=== PATIENT | male | born 1965 | race Caucasian/White ===

== ENCOUNTER 2025-06-08 14:10 | Inpatient (IN) | payer MEDICARE ==
[~2025-06-08] VITALS: Ht 175.3 cm; Wt 90.2 kg
[2025-06-08] VITALS (11 sets, daily range): BP systolic 109–134; BP diastolic 62–75
[2025-06-08 15:05] LABS: BASOPHILS ABSOLUTE AUTO 0.04 K/mm3 (0.00-0.23); BASOPHILS PERCENT AUTO 1 % (0-2); EOSINOPHILS ABSOLUTE AUTO 0.33 K/mm3 (0.00-0.68); EOSINOPHILS PERCENT AUTO 7 % (0-6); Hematocrit 26.1 % (37.0-53.0); Hemoglobin 7.3 g/dL (13.5-17.5); IMMATURE GRAN ABSOLUTE AUTO 0.02 K/mm3 (0.00-0.10); IMMATURE GRAN PERCENT AUTO 0 % (0-1); LYMPHOCYTES ABSOLUTE AUTO 0.71 K/mm3 (0.84-5.20); LYMPHOCYTES PERCENT AUTO 14 % (21-46); MONOCYTES ABSOLUTE AUTO 0.51 K/mm3 (0.16-1.47); MONOCYTES PERCENT AUTO 10 % (4-13); Mean Corpuscular HGB Conc 28.0 g/dL (31.5-36.5); Mean Corpuscular Volume 78 fL (80-100); NEUTROPHILS ABSOLUTE AUTO 3.34 K/mm3 (1.96-9.15); NEUTROPHILS PERCENT AUTO 68 % (41-73); NRBC ABSOLUTE 0.00 K/mm3 (0.00-0.02); NRBC Auto 0.0 /100 WBC (0.0-0.2); Platelet Count 77 K/mm3 (150-400); RDW Coefficient Variation 25.2 % (11.7-14.2); RDW Standard Deviation 71.9 fL (35.1-46.3)
[2025-06-08 15:15] LABS: Alanine Aminotransfer (ALT/SGP 34.0 U/L (12-78); Albumin, Blood 2.9 g/dL (3.4-5.0); Albumin/Globulin Ratio 0.7 (0.8-1.8); Anion Gap 11.0 mmol/L (3-11); Aspartate Aminotrans (AST/SGOT 42.0 U/L (12-37); Bilirubin, Total 0.6 mg/dL (0.1-1.0); Blood Urea Nitrogen 23.0 mg/dL (8-24); CO2, Blood 26.0 mmol/L (21-32); Calcium, Blood 8.7 mg/dL (8.5-10.1); Chloride, Blood 109.0 mmol/L (98-108); Creatinine, Blood 1.09 mg/dL (0.60-1.20); Globulin, Blood 4.0 g/dL (2.2-4.0); Glucose, Blood 114.0 mg/dL (70-99); Potassium, Blood 4.4 mmol/L (3.5-5.5); Sodium, Blood 142.0 mmol/L (136-145); Total Protein, Blood 6.9 g/dL (6.4-8.2)
[2025-06-08] MEDS ORDERED: FINA5 PO ×2 (16:52→22:47)
[2025-06-08] MEDS ORDERED: PREGABALIN75 MG PO (16:53)
[2025-06-08] MEDS ORDERED: FUROSEMIDE20 MG PO (16:53)
[2025-06-08] MEDS ORDERED: CONSTULOSE10 GM/15 M PO (16:53)
[2025-06-08] MEDS ORDERED: SPIRONOLACTONE50 MG PO (16:53)
[2025-06-08 20:25] LABS: Source, Urine Clean Catch
[2025-06-08 20:30] LABS: Bilirubin, Urine Neg (Neg); Glucose Qualitative, Urine Neg (Neg); Ketones, Urine Neg (Neg); Leukocyte Esterase, Urine Neg (Neg); Protein, Urine Neg (Neg); Specific Gravity, Urine 1.010 (1.003-1.022); Urobilinogen, Urine NORM (Normal)
[2025-06-08 20:45] LABS: Color, Urine Pale Yellow (P-Yellow)
[2025-06-08] MEDS ORDERED: FLU VACC TS2025-26(6MOS UP)/PF 45 MCG/0.5 ML SYRINGE IM SCH (21:35)
[2025-06-08] MEDS ORDERED: Ondansetron HCl 2 MG / ML 2ML Vial IV PRN (21:35)
[2025-06-08 22:29] LABS: BASOPHILS ABSOLUTE AUTO 0.03 K/mm3 (0.00-0.23); BASOPHILS PERCENT AUTO 1 % (0-2); EOSINOPHILS ABSOLUTE AUTO 0.30 K/mm3 (0.00-0.68); EOSINOPHILS PERCENT AUTO 7 % (0-6); Hematocrit 26.1 % (37.0-53.0); Hemoglobin 7.5 g/dL (13.5-17.5); IMMATURE GRAN ABSOLUTE AUTO 0.01 K/mm3 (0.00-0.10); IMMATURE GRAN PERCENT AUTO 0 % (0-1); LYMPHOCYTES ABSOLUTE AUTO 0.87 K/mm3 (0.84-5.20); LYMPHOCYTES PERCENT AUTO 20 % (21-46); MONOCYTES ABSOLUTE AUTO 0.43 K/mm3 (0.16-1.47); MONOCYTES PERCENT AUTO 10 % (4-13); Mean Corpuscular HGB Conc 28.7 g/dL (31.5-36.5); Mean Corpuscular Volume 77 fL (80-100); NEUTROPHILS ABSOLUTE AUTO 2.76 K/mm3 (1.96-9.15); NEUTROPHILS PERCENT AUTO 63 % (41-73); NRBC ABSOLUTE 0.00 K/mm3 (0.00-0.02); NRBC Auto 0.0 /100 WBC (0.0-0.2); Platelet Count 81 K/mm3 (150-400); RDW Coefficient Variation 25.3 % (11.7-14.2); RDW Standard Deviation 71.8 fL (35.1-46.3)
[2025-06-08] MEDS ORDERED: METFORMIN HCL500 M3 PO (22:45)
[2025-06-08 22:47] LABS: Prothrombin Time Results 13.0 Sec (9.7-11.5)
[2025-06-08] MEDS ORDERED: Lamictal150 MG PO (22:47)
[2025-06-08] MEDS ORDERED: ATOR40TA PO (22:48)
[2025-06-08] MEDS ORDERED: TAMSULOSIN HCL0.4 M1 PO (22:48)
[2025-06-08] MEDS ORDERED: ZOLOFT50 MG PO (22:49)
[2025-06-08] MEDS ORDERED: LACOSAMIDE100 M1 PO (22:50)
[2025-06-08] MEDS ORDERED: PANTOPRAZOLE SO40 M2 PO (22:50)
[2025-06-08] MEDS ORDERED: CARVEDILOL3.125 MG PO (22:51)
[2025-06-08] MEDS ORDERED: MELATONIN5 M1 PO (22:53)
[2025-06-08 23:14] LABS: U Amphetamine Screen Not Detected; U Barbituate Screen Not Detected; U Benzodiazapine Screen Not Detected; U Buprenorphine Screen Not Detected; U Cannabinoids Screen DETECTED; U Cocaine Screen Not Detected; U Methadone Screen Not Detected; U Methamphetamine Screen Not Detected; U Opiates Screen Not Detected; U Oxycodone Screen DETECTED; U Phencyclidine Screen Not Detected
[2025-06-08 23:19] LABS: Magnesium, Blood 2.0 mg/dL (1.6-2.4); Total Iron Binding Capacity 359.0 ug/dL (250-450)
[2025-06-08] MEDS ORDERED: OXYC10TA19 PO (23:20)
[2025-06-09] VITALS (9 sets, daily range): BP systolic 100–120; BP diastolic 53–78
--- NOTE | 2025-06-09 00:34 | NUR ---
ASSUMPTION OF CARE PT ARRIVED TO UNIT APPROX 2130. HR IS LOW 80'S AND NSR ON MONITOR, BP STABLE WITH MAP >65 AND SPO2 >94% ON RA. PT ARRIVES ALERT, ORIENTED TO SELF, PERSON AND SITUATION BUT NOT PLACE/TIME. PATENT 20G PIV IN RFA. BED ALARM IS ON AND CALL LIGHT WITHIN REACH.
[2025-06-09 03:45] LABS: BASOPHILS ABSOLUTE AUTO 0.03 K/mm3 (0.00-0.23); BASOPHILS PERCENT AUTO 1 % (0-2); EOSINOPHILS ABSOLUTE AUTO 0.30 K/mm3 (0.00-0.68); EOSINOPHILS PERCENT AUTO 7 % (0-6); Hematocrit 24.4 % (37.0-53.0); Hemoglobin 7.1 g/dL (13.5-17.5); IMMATURE GRAN ABSOLUTE AUTO 0.01 K/mm3 (0.00-0.10); IMMATURE GRAN PERCENT AUTO 0 % (0-1); LYMPHOCYTES ABSOLUTE AUTO 0.86 K/mm3 (0.84-5.20); LYMPHOCYTES PERCENT AUTO 21 % (21-46); MONOCYTES ABSOLUTE AUTO 0.38 K/mm3 (0.16-1.47); MONOCYTES PERCENT AUTO 9 % (4-13); Mean Corpuscular HGB Conc 29.1 g/dL (31.5-36.5); Mean Corpuscular Volume 78 fL (80-100); NEUTROPHILS ABSOLUTE AUTO 2.58 K/mm3 (1.96-9.15); NEUTROPHILS PERCENT AUTO 62 % (41-73); NRBC ABSOLUTE 0.00 K/mm3 (0.00-0.02); NRBC Auto 0.0 /100 WBC (0.0-0.2); Platelet Count 79 K/mm3 (150-400); RDW Coefficient Variation 25.4 % (11.7-14.2); RDW Standard Deviation 70.9 fL (35.1-46.3)
[2025-06-09 04:00] LABS: Prothrombin Time Results 12.7 Sec (9.7-11.5)
[2025-06-09 04:17] LABS: Alanine Aminotransfer (ALT/SGP 30.0 U/L (12-78); Albumin, Blood 2.8 g/dL (3.4-5.0); Albumin/Globulin Ratio 0.8 (0.8-1.8); Anion Gap 10.0 mmol/L (3-11); Aspartate Aminotrans (AST/SGOT 29.0 U/L (12-37); Bilirubin, Total 0.6 mg/dL (0.1-1.0); Blood Urea Nitrogen 21.0 mg/dL (8-24); CO2, Blood 29.0 mmol/L (21-32); Calcium, Blood 8.6 mg/dL (8.5-10.1); Chloride, Blood 108.0 mmol/L (98-108); Creatinine, Blood 1.1 mg/dL (0.60-1.20); Globulin, Blood 3.7 g/dL (2.2-4.0); Glucose, Blood 109.0 mg/dL (70-99); Potassium, Blood 3.6 mmol/L (3.5-5.5); Sodium, Blood 143.0 mmol/L (136-145); Total Protein, Blood 6.5 g/dL (6.4-8.2)
--- NOTE | 2025-06-09 05:20 | NUR ---
SHIFT SUMMARY PT REMAINS ORIENTED TO SELF, PERSON & SITUATION. HR IS SINUS IN THE 70S-80S ON MONITOR, BP STABLE WITH SYSTOLIC 110S-120S WITH MAP >65. SP02 INTERMITTENLY DIPS TO HIGH 88/89 WHILE SLEEPING AND RETURNS TO >92% ON RA. USES URINAL WITH MINIMAL ASSISTANCE, NO BM THIS SHIFT AFTER LACTULOSE IN THE ED PRIOR TO ADMISSION. NO UNMET NEEDS EXPRESSED AT THIS TIME, CALL LIGHT WITHIN REACH AND BED ALARM ACTIVATED.
[2025-06-09] MEDS ORDERED: Insulin Human Lispro 100 Units/ML 3ML Syringe SC SCH (07:30)
[2025-06-09] MEDS ORDERED: Iron Dextran 50 MG / ML 2ML Vial IV ONE (08:10)
[2025-06-09] MEDS ORDERED: Iron Dextran 975 MG in NS 250 ML IV ONE (09:30)
--- NOTE | 2025-06-09 10:13 | NUR ---
"Spiritual Care | Pt. request Pt. is awake in bed when he welcomes my visit. Pt. is pleasant, but quickly verbalizes that he is slow to mentally process and can be slow to respond. Faciltated a short life revie and listened with patient empathy and a calming presence. Pt. displayed evidence of some ocassional confusion, but overall engaged thoughtfully. Pt. verbalized his hope that his mother could visit as she is a primary support for him. Pt. verbalized in detail that she would be dependant upon someone drving her to this hospital from [place]. Pt. welcomed prayer. Prayed for the Pt. Pt. verbalized gratitude for the spiritual care visit."
--- NOTE | 2025-06-09 17:53 | NUR ---
Summary. Pt alert and oriented x2 throughout shift, easily confused during conversation. Up with PT and to bedside commode/recliner with walker and gait belt. Pt is weak but able to ambulate safely. No acute events this shift, VS stable. See chart for further details.
[2025-06-09] MEDS ORDERED: Arginine/Glutamine/Calcium Hmb 1 Packet PO SCH (21:00)
[2025-06-10] VITALS (8 sets, daily range): BP systolic 99–135; BP diastolic 56–78
[2025-06-10 04:37] LABS: Hematocrit 23.7 % (37.0-53.0); Hemoglobin 6.8 g/dL (13.5-17.5); Mean Corpuscular HGB Conc 28.7 g/dL (31.5-36.5); Mean Corpuscular Volume 78 fL (80-100); NRBC ABSOLUTE 0.00 K/mm3 (0.00-0.02); NRBC Auto 0.0 /100 WBC (0.0-0.2); Platelet Count 82 K/mm3 (150-400); RDW Coefficient Variation 25.4 % (11.7-14.2); RDW Standard Deviation 71.0 fL (35.1-46.3)
[2025-06-10 05:02] LABS: Anion Gap 8.0 mmol/L (3-11); Blood Urea Nitrogen 18.0 mg/dL (8-24); CO2, Blood 30.0 mmol/L (21-32); Calcium, Blood 8.3 mg/dL (8.5-10.1); Chloride, Blood 109.0 mmol/L (98-108); Creatinine, Blood 1.09 mg/dL (0.60-1.20); Glucose, Blood 106.0 mg/dL (70-99); Potassium, Blood 3.6 mmol/L (3.5-5.5); Sodium, Blood 143.0 mmol/L (136-145)
--- NOTE | 2025-06-10 07:16 | NUR ---
SHIFT SUMMARY PT HAS TOLERATED SHIFT OVERNIGHT WELL WITH NO SIGNIFICANT EVENTS OR CHANGES IN STATUS. PT IS ALERT AND ORIENTED AND ABLE TO MOVE ALL EXTREMETIES. PT HAS BEEN ABLE TO MOVE SELF IN BED AND HAS BEEN CALL LIGHT APPROPRIATE THROUGH SHIFT. PT WAS FOUND TO HAVE A LOW HEMOGLOBIN LEVEL THIS MORNING AND HAS BEEN STARTED ON BLOOD TRANSFUSION PER PHYSICIAN ORDERS. PT HAS BEEN TOLERATING TRANSFUSION WELL. PT WAS ABLE TO HAVE ONE BOWEL MOVEMENT OVERNIGHT THAT STARTED SOLID AND ENDED SOMEWHAT LOOSE. REPORT PASSED TO DAY SHIFT TEAM.
--- NOTE | 2025-06-10 16:31 | NUR ---
SHIFT SUMMARY: PT A/O X2-3, FORGETS LIMITATIONS, ABLE TO MAKE NEEDS KNOWN. PT HAS DIFFICULTY WITH TRACKING CONVERSATIONS. PT MOM CURRENTLY VISITING AT BEDSIDE. STRENGTH EQUAL BILATERALLY, EXPIERENCES WEAKNESS WITH AMBULATION. PT ON ROOM AIR, SATS >90%. DENIES SOB. PT IS NSR 60s, DENIES CHEST PAIN/PRESSURE. AFEBRILE, OTHER VSS. PT SBA TO VOID USING BSC AND URINAL. PT ABDOMEN MODERATELY DISTENDED AND FIRM. PT UNABLE TO HAVE A BM THIS SHIFT. PT UP TO CHAIR TODAY AND TOLERATING WELL, CALL WITHIN REACH.
[2025-06-11 04:50] LABS: Hematocrit 26.5 % (37.0-53.0); Hemoglobin 7.7 g/dL (13.5-17.5); Mean Corpuscular HGB Conc 29.1 g/dL (31.5-36.5); Mean Corpuscular Volume 78 fL (80-100); NRBC ABSOLUTE 0.00 K/mm3 (0.00-0.02); NRBC Auto 0.0 /100 WBC (0.0-0.2); Platelet Count 84 K/mm3 (150-400); RDW Coefficient Variation 25.2 % (11.7-14.2); RDW Standard Deviation 70.9 fL (35.1-46.3)
[2025-06-11 07:19] VITALS: BP 129/79
[2025-06-11 10:59] VITALS: BP 101/60
--- NOTE | 2025-06-11 16:03 | NUR ---
4069 PALLIATIVE CARE VISIT: CONSULT RECEIVED FOR END STAGE DISEASE, SYMPTOM MANAGEMENT. REVIEWED MEDICAL RECORD AND SPOKE TO PRIMARY RN PRIOR TO VISIT. PT WAS AWAKE AND INTERACTIVE, ALSO EATING LUNCH AT TIME OF VISIT WHICH HE ATE 100% OF MAIN COURSE. PT STATES HE HAS GOOD APPETITE. MOTHER DAVI IS PRESENT. PER DAVI SHE WANTS HER DAUGHTER TO ALSO BE PRESENT FOR OUR CONVERSATION. ADVISED TO LET ME KNOW WHEN FAN IS HERE AND TO LET PRIMARY RN KNOW AND I WILL COME TO SEE PT AGAIN. PROVIDED ADVANCE DIRECTIVE BOOKLET FOR REVIEW OF MATERIAL WHILE WAITING FOR MEETING WITH FAN.
[2025-06-11 16:12] VITALS: BP 123/59
--- NOTE | 2025-06-11 16:26 | NUR ---
SHIFT SUMMARY: PT ALERT AND ORIENTED X3, ABLE TO FOLLOW COMMANDS AND MAKE NEEDS KNOWN. FORGETFUL AT TIMES. BED ALARM ON FOR SAFETY. STRENGTH EQUAL BILATERALLY. BP STABLE. HR SR 70'S. DENIES CP/PRESSURE. PULSES STRONG AND EQUAL THROUGHOUT. AFEBRILE. SPO2 >96% ON ROOM AIR. LUNG SOUNDS CLEAR THROUGHOUT. ABD MILDLY DISTENDED, BOWEL SOUNDS +. PT ONE PERSON ASSIST WITH [facility]WW TO AND FROM [facility]. NO BM THIS SHIFT. PHYSICAL THERAPY IN THIS AFTERNOON, PT TOLERATED WELL. MOTHER AT BEDSIDE MAJORITY OF THE DAY, UPDATED ON PT PLAN OF CARE. POWERGLIDE IN ANDREW, DRAWS AND FLUSHES. DENIES PAIN THROUGHOUT. BED IN LOW, CALL LIGHT IN REACH, WILL REPORT TO ONCOMING RN.
[2025-06-11 20:33] VITALS: BP 108/63
[2025-06-12 07:39] LABS: Hematocrit 27.4 % (37.0-53.0); Hemoglobin 8.0 g/dL (13.5-17.5); Mean Corpuscular HGB Conc 29.2 g/dL (31.5-36.5); Mean Corpuscular Volume 79 fL (80-100); NRBC ABSOLUTE 0.00 K/mm3 (0.00-0.02); NRBC Auto 0.0 /100 WBC (0.0-0.2); Platelet Count 89 K/mm3 (150-400); RDW Coefficient Variation 26.0 % (11.7-14.2); RDW Standard Deviation 73.0 fL (35.1-46.3)
[2025-06-12 07:45] VITALS: BP 109/76
[2025-06-12 07:50] LABS: Anion Gap 6.0 mmol/L (3-11); Blood Urea Nitrogen 17.0 mg/dL (8-24); CO2, Blood 32.0 mmol/L (21-32); Calcium, Blood 8.0 mg/dL (8.5-10.1); Chloride, Blood 108.0 mmol/L (98-108); Creatinine, Blood 1.12 mg/dL (0.60-1.20); Glucose, Blood 104.0 mg/dL (70-99); Potassium, Blood 3.9 mmol/L (3.5-5.5); Sodium, Blood 142.0 mmol/L (136-145)
[2025-06-12 09:17] VITALS: BP 96/50
--- NOTE | 2025-06-12 09:20 | NUR ---
TRANSFER: PT TRANSFERED F/ICU, ARRIVES TO UNIT ALERT, TRANSFERS SELF F/ W/C TO BED INDEPENDENTLY. PT IS ORIENTED TO SELF, LOCATION, SITUATION. PT IS SLOW TO ANSWER QUESTIONS, ABLE TO MAKE NEEDS KNOWN, COOPERATIVE W/CARE. PT DENIES SOB, O2 SATS >93% ON RA, LS CLEAR. PT DENIES CP, SR 84 ON MONITOR. PULSES STRONG AND EQUAL T/OUT. ABDOMEN MOD DISTENDED, NONTENDER TO PALP, BS + TO AUSC. PER REPORT, PT IS 1 ASSIST W/FWW TO/FROM BSC. PER REPOT, PT W/ONE SOFT BM ON NOC SHIFT. ULCERS TO GREAT TOES ON BILATERAL FEET, DRESSINGS TO BE CHANGED TODAY. PG TO ANDREW, FLUSHES WELL, DOES NOT DRAW. PT HAS BEEN ORIENTED TO ROOM, CALL LIGHT IN REACH.
--- NOTE | 2025-06-12 09:55 | NUR ---
TRANSFER PT TRANSFERED TO U 6 VIA . REPORT GIVEN TO NAZ TURNER. ALL BELONGINGS TRANSFERRED WITH PT.
[2025-06-12 11:51] VITALS: BP 115/69
[2025-06-12 17:00] VITALS: BP 112/63
--- NOTE | 2025-06-12 18:22 | NUR ---
SHIFT SUMMARY: PT CONTINUES ORIENTED x3, SLOW MOVEMENTS AND RESPONSE, ABLE TO COMMUNICATE NEEDS. FAMILY AT BEDSIDE MAJORITY OF DAY, PROVIDER TO BEDSIDE TO ADDRESS CONCERNS AND PALLIATIVE CARE IN ROOM FOR CARE PLANNING. PT DENIES SOB, O2 SATS >93% RA. PT DENIES CP, SR ON MONITOR. PT OOB TO RESTROOM W/OUT CALLING FOR ASSISTANCE x1 TODAY, ASSISTED BACK TO BED, EDUCATED RE: IMPORTANCE OF CALLING, PT V/U, BED ALARM ON. BMx1 THIS SHIFT. PT AMBULATED INTO HALLWAY W/ 1P ASSIST, GAIT BELT, FWW AND TOLERATED IT WELL. WOUNDS ON TOES CLEANED AND REDRESSED THIS SHIFT. PT RESTING IN BED W/CALL LIGHT IN REACH.
--- NOTE | 2025-06-12 18:41 | NUR ---
PALLIATIVE CARE CONSULT: MET WITH FAMILY AND PT TODAY AT 1520 TO COMPLETE POLST/AD. FAMILY PRESENT-MOM DAVI AND SISTER SUSANNAH. PT LEFT TO [place] AND TOLD THEM JAYNE CANNOT BE CAREGIVER TO [place] ANY LONGER SO SPOUSE IS CURRENTLY UNINVOLVED. [facility] HAS HX OF TBI SO FAMILY THERE TO ASSIST WITH EXPLAINING AND MAKING CHOICES. PT IS ALERT AND ORIENTED TO SELF, FAMILY, PLACE AND SITUATION. HE IS ABLE TO VERBALIZE AND COMPREHEND HIS CHOICES HE DOES NEED TIME TO PROCESS AND AT TIMES MULTIPLE EXPLAINATIONS. AD AND POLST COMPLETED. PT DOES NEED IT NOTARIZED. ADVISED TO NOT SIGN UNTIL NOTARY HERE AND WILL NEED ID. EDUCATED ON POLST AND EXPLAINED RISKS VS BENEFITS OF CPR. PT STATED HE DOES NOT WANT CPR DUE TO HIS ESOPHAGEAL VARICES. HE WOULD BE OKAY WITH TEMPORARY INTUBATION, SHOCK AND MEDICATIONS IF NEEDED. POLST COMPLETED AND SIGNED BY PT. NOTIFIED DR. GIBBS OF PT CHOICES. ORDER RECIEVED TO PLACE LIMITED CODE. DR. GIBBS TO SIGN TOMORROW. AD TO BE NOTARIZED TOMORROW.
[2025-06-12] MEDS ORDERED: Insulin Glargine 100 Unit/ML 3 ML SYR SC SCH (21:00)
[2025-06-12] MEDS ORDERED: Insulin Glargine-Yfgn 100 Unit/mL 3 ML SYR SC SCH (21:00)
[2025-06-12 21:09] VITALS: BP 109/56
[2025-06-13 03:13] VITALS: BP 115/72
[2025-06-13 04:07] LABS: Anion Gap 6.0 mmol/L (3-11); Blood Urea Nitrogen 19.0 mg/dL (8-24); CO2, Blood 32.0 mmol/L (21-32); Calcium, Blood 8.2 mg/dL (8.5-10.1); Chloride, Blood 109.0 mmol/L (98-108); Creatinine, Blood 1.16 mg/dL (0.60-1.20); Glucose, Blood 124.0 mg/dL (70-99); Potassium, Blood 4.2 mmol/L (3.5-5.5); Sodium, Blood 143.0 mmol/L (136-145)
--- NOTE | 2025-06-13 05:18 | NUR ---
SHIFT SUMMARY: NO SIGNIFICANT CHANGES DURING THE SHIFT. PATIENT IS A&OX3, FORGETFULL OF PLACE INTERMITTENTLY BUT IS EASILY REORIENTED. BED ALARM ON A PRECAUTION. VITALS ARE STABLE AND IS ON ROOM AIR WITH >90% SPO2. PATIENT DENIES PAIN THROUGHOUT SHIFT. PATIENT IS ABLE TO MAKE HIS NEEDS KNOWN. HE IS VOIDING AND IS A 1P ASSIST WITH FWW AND GAIT BELT WHEN AMBULATING TO BATHROOM. HE IS CURRENTLY LAYING IN BED WITH CALL LIGHT IN REACH. IT IS NOTED THAT PATIENT HAS NOT HAD A BM THROUGHOUT SHIFT AND HAS BEEN GIVEN HIS PO LACTULOSE PER NOV.
[2025-06-13 08:13] VITALS: BP 132/72
[2025-06-13 08:14] LABS: BASOPHILS ABSOLUTE AUTO 0.05 K/mm3 (0.00-0.23); BASOPHILS PERCENT AUTO 1 % (0-2); EOSINOPHILS ABSOLUTE AUTO 0.29 K/mm3 (0.00-0.68); EOSINOPHILS PERCENT AUTO 6 % (0-6); Hematocrit 30.6 % (37.0-53.0); Hemoglobin 8.8 g/dL (13.5-17.5); IMMATURE GRAN ABSOLUTE AUTO 0.01 K/mm3 (0.00-0.10); IMMATURE GRAN PERCENT AUTO 0 % (0-1); LYMPHOCYTES ABSOLUTE AUTO 0.96 K/mm3 (0.84-5.20); LYMPHOCYTES PERCENT AUTO 19 % (21-46); MONOCYTES ABSOLUTE AUTO 0.49 K/mm3 (0.16-1.47); MONOCYTES PERCENT AUTO 10 % (4-13); Mean Corpuscular HGB Conc 28.8 g/dL (31.5-36.5); Mean Corpuscular Volume 81 fL (80-100); NEUTROPHILS ABSOLUTE AUTO 3.33 K/mm3 (1.96-9.15); NEUTROPHILS PERCENT AUTO 65 % (41-73); NRBC ABSOLUTE 0.00 K/mm3 (0.00-0.02); NRBC Auto 0.0 /100 WBC (0.0-0.2); Platelet Count 101 K/mm3 (150-400); RDW Coefficient Variation 26.7 % (11.7-14.2); RDW Standard Deviation 76.3 fL (35.1-46.3)
[2025-06-13 11:31] VITALS: BP 114/70
[2025-06-13 15:12] VITALS: BP 96/59
--- NOTE | 2025-06-13 16:48 | NUR ---
PALLIATIVE CARE VISIT: MET WITH FAMILY TODAY. POLST SIGNED BY . COPY SENT TO MEDICAL RECORDS AND POLST REGISTRY, ORIGINAL GIVEN BACK TO PT. GAVE FAMILY PAPERWORK ON HOW TO APPLY TO MEDICAID AFTER CONCERNS WERE VOICED ABOUT PT NEEDING MORE CAREGIVING. SPOUSE IS IN [place] AND VOICED SHE CAN NO LONGER CARE FOR PT. FAMILY REQUESTED POA PAPERWORK. ADVANCE DIRECTIVE WAS NOT FULLY COMPLETED AND SO WILL ATTEMPT TO GET NOTARIZED TOMORROW.
[2025-06-13 17:33] VITALS: BP 116/66
--- NOTE | 2025-06-13 18:58 | NUR ---
SHIFT SUMMARY: PT A&Ox3, SLEEPS OFTEN BUT WAKES EASILY, MOVEMENT AND COMPREHENSION ARE SLOW, PT ABLE TO COMMUNICATE NEEDS, IS COOPERATIVE W/CARE. 1P ASSIST W/GAIT BELT AND FWW. PT DENIES SOB, O2 SATS >93% ON RA. PT DENIES CP, SR ON MONITOR. PT IS CONTINENT, AMBULATING TO BATHROOM, NO BM THIS SHIFT. PT AMBULATED IN HALLWAY W/PT, TOLERATED WELL. PT MEDICATED x1 THIS SHIFT FOR C/O PAIN. BED IN LOW POSITION, ALARM ON FOR SAFETY, CALL LIGHT IN REACH.
[2025-06-13 20:38] VITALS: BP 120/74
[2025-06-14 02:10] VITALS: BP 120/74
[2025-06-14 06:04] VITALS: BP 113/65
--- NOTE | 2025-06-14 06:10 | NUR ---
NOC SHIFT SUMMARY PT A&O X3-4, INTERMIT CONFUSION ON DATE AND TIME. PT REQUIRES REORIENTATION AND STEP BY STEP INSTRUCTIONS. PT IS SLOW TO RESPOND, BED ALARM ON T/O SHIFT FOR SAFETY. PT IS A 1 PERSON TRANSFER W/ FWW. MED ON TELE STATUS. DENIES CHEST PAIN OR PRESSURE. BREATHING EVEN AND UNLABORED, RA, SPO2 >95% ON CHECKS. STRENGTH EQUAL BILATTERALLY. WOUND CARE TO BOTH GREAT TOES, PT DOES ENDORSE PAIN IN BOTH TOES THAT RADIATES UP HIS LEGS AT TIMES. PT WILL ELAVATE THEM ON PILLOWS OCCASTIONALLY. PT CAN BECOME IRRATED WITH STAFF AND CARE TASKS. PT WAS ABLE TO REST ON AND OFF DURING THE NIGHT. BED IN LOWEST POSTION, CALL LIGHT IN REACH, BED ALARM ON. CARE CONTINUES, WILL REPORT TO ONCOMING RN.
[2025-06-14 08:00] VITALS: BP 118/72
[2025-06-14] MEDS ORDERED: FERSU300 PO (09:49)
[2025-06-14] MEDS ORDERED: ZOLOFT50 MG PO (09:55)
[2025-06-14] MEDS ORDERED: BASAGLAR K100 UNIT/3 SC (11:47)
[2025-06-14 13:00] VITALS: BP 109/69
[2025-06-14 15:23] VITALS: BP 96/57
[2025-06-14 15:41] VITALS: BP 98/61
--- NOTE | 2025-06-14 15:48 | NUR ---
Discharge SNF Pt medical no telemetry status. A&O x3, forgetful. VSS. Spo2 > 92% on RA. SBP 90s prior to discharge. MAP > 65. Pt mother at bedside stating "he does that." Pt laying in bed, relaxed. Pt then assisted up w/ pt denying lightheadedness or dizziness. SBP rechecked after sitting up, unchanged. Pt stating readiness to discharge. Pt mother agreeable. Pt assisted into wheelchair for transport to [facility]. made aware w/ okay for discharge. Pt taken out in wheelchair @ approx 1545.
--- NOTE | 2025-06-14 15:58 | NUR ---
Pt. is awake in bed. Mom is at bedside when he welcomes my visit. Pt. is resting but not completely somnolent. Facilitated an update from the mother who verbalizes an expectation of a discharge soon. Considered matters of mitzi and belief. Prayed for the Pt. Pts. mom verbalized gratitude for the spiritual care visit.
== END 2025-06-14 15:55 | disposition home or self-care (01) | DRG 442 ==
LOC: ER 14:10 → ICUE 14:11 → PCU 06-09 17:25 → ICUE 06-09 17:26 → PCU 06-12 09:30
PROVIDERS: Emergency Medicine; Internal Medicine; Nurse Practitioner Acute Care; ADMIT Student in an Organized Health Care Education/Training Program
DX: K76.82 Hepatic encephalopathy (principal); E72.4 Disorders of ornithine metabolism; K70.30 Alcoholic cirrhosis of liver without ascites; I45.10 Unspecified right bundle-branch block; D69.6 Thrombocytopenia, unspecified; S09.90XA Unspecified injury of head, initial encounter; E11.621 Type 2 diabetes mellitus with foot ulcer; L97.529 Non-pressure chronic ulcer of other part of left foot with unspecified severity; L97.519 Non-pressure chronic ulcer of other part of right foot with unspecified severity; D50.9 Iron deficiency anemia, unspecified; Z98.890 Other specified postprocedural states; Z79.899 Other long term (current) drug therapy; W18.30XA Fall on same level, unspecified, initial encounter
CPT/HCPCS: 36415; 36430; 70450; 73562-LT; 80048; 80053; 81003; 82140; 82607; 82746; 82947; 83540; 83550; 83735; 85025; 85027; 85610; 86850; 86900; 86901; 86923; 93005; 93010; 96374; 96376; 97110; 97112; 97116; 97162; 97530; 99285-25; A9270; G0378; J1750; J1815; J7050; P9016

== ENCOUNTER → 2025-07-28 | Outpatient (CLI) | payer MEDICARE ==
[~2025-07-28] MED LIST: ATOR40TA PO; BASAGLAR K100 UNIT/3 SC; CARVEDILOL3.125 MG PO; CONSTULOSE10 GM/15 M PO; FERSU300 PO; FINA5 PO; FUROSEMIDE20 MG PO; LACOSAMIDE100 M1 PO; Lamictal150 MG PO; MELATONIN5 M1 PO; METFORMIN HCL500 M3 PO; OXYC10TA19 PO; PANTOPRAZOLE SO40 M2 PO; PREGABALIN75 MG PO; SPIRONOLACTONE50 MG PO; TAMSULOSIN HCL0.4 M1 PO; ZOLOFT50 MG PO
== END ==
LOC: LAB 14:46 → LAB SHORT 14:46
DX: L97.512 Non-pressure chronic ulcer of other part of right foot with fat layer exposed (principal); L97.522 Non-pressure chronic ulcer of other part of left foot with fat layer exposed
CPT/HCPCS: 87070; 87075; 87077; 87147; 87186; 87205

== ENCOUNTER 2025-09-13 14:10 | Inpatient (IN) | payer MEDICARE ==
[~2025-09-13] VITALS: Ht 175.3 cm; Wt 102.5 kg
[2025-09-13 15:09] LABS: Hematocrit 20.6 % (37.0-53.0); Mean Corpuscular HGB Conc 28.6 g/dL (31.5-36.5); Mean Corpuscular Volume 88 fL (80-100); NRBC ABSOLUTE 0.00 K/mm3 (0.00-0.02); NRBC Auto 0.0 /100 WBC (0.0-0.2); Platelet Count 71 K/mm3 (150-400); RDW Coefficient Variation 18.6 % (11.7-14.2); RDW Standard Deviation 58.9 fL (35.1-46.3)
[2025-09-13 15:14] LABS: Hemoglobin 5.9 g/dL (13.5-17.5)
[2025-09-13 15:41] LABS: Alanine Aminotransfer (ALT/SGP 30.0 U/L (12-78); Albumin, Blood 3.0 g/dL (3.4-5.0); Albumin/Globulin Ratio 0.9 (0.8-1.8); Anion Gap 9.0 mmol/L (3-11); Aspartate Aminotrans (AST/SGOT 32.0 U/L (12-37); Bilirubin, Total 0.8 mg/dL (0.1-1.0); Blood Urea Nitrogen 29.0 mg/dL (8-24); CO2, Blood 26.0 mmol/L (21-32); Calcium, Blood 7.7 mg/dL (8.5-10.1); Chloride, Blood 111.0 mmol/L (98-108); Creatinine, Blood 1.37 mg/dL (0.60-1.20); Globulin, Blood 3.2 g/dL (2.2-4.0); Glucose, Blood 210.0 mg/dL (70-99); Potassium, Blood 4.3 mmol/L (3.5-5.5); Sodium, Blood 142.0 mmol/L (136-145); Total Protein, Blood 6.2 g/dL (6.4-8.2)
[2025-09-13 16:24] LABS: BASOPHILS ABSOLUTE MAN 0.00 K/mm3 (0.00-0.23); BASOPHILS PERCENT MAN 0 % (0-2); EOSINOPHILS ABSOLUTE MAN 0.14 K/mm3 (0.00-0.68); EOSINOPHILS PERCENT MAN 3 % (0-6); LYMPHOCYTES ABSOLUTE MAN 0.58 K/mm3 (0.84-5.20); LYMPHOCYTES PERCENT MAN 12 % (21-46); MONOCYTES ABSOLUTE MAN 0.39 K/mm3 (0.16-1.47); MONOCYTES PERCENT MAN 8 % (4-13); NEUTROPHILS ABSOLUTE MAN 3.76 K/mm3 (1.96-9.15); SEG NEUTROPHILS PERCENT MAN 77 % (41-73)
[2025-09-13] MEDS ORDERED: NS 1,000 ML IV ONE (17:15)
[2025-09-13] MEDS ORDERED: Ondansetron HCl 2 MG / ML 2ML Vial IV PRN (18:00)
[2025-09-13] MEDS ORDERED: FLU VACC TS2025-26(6MOS UP)/PF 45 MCG/0.5 ML SYRINGE IM SCH (18:00)
[2025-09-13] MEDS ORDERED: Insulin Human Lispro 100 Units/ML 3ML Syringe SC SCH (18:00)
[2025-09-13] MEDS ORDERED: Pantoprazole Sodium 40 MG Injection IV ONE (18:00)
[2025-09-13 18:18] LABS: Prothrombin Time Results 12.3 Sec (9.7-11.5)
[2025-09-13 20:56] VITALS: BP 106/86
[2025-09-13 21:40] VITALS: BP 100/60
[2025-09-13 21:55] VITALS: BP 96/54
[2025-09-13 22:00] VITALS: BP 90/55
[2025-09-13] MEDS ORDERED: MELA3 PO (22:08)
[2025-09-13] MEDS ORDERED: VITAMIN B-1100 M1 PO (22:11)
[2025-09-13] MEDS ORDERED: Insulin Glargine-Yfgn 100 Unit/mL 3 ML SYR SC SCH (22:40)
[2025-09-13 23:00] VITALS: BP 113/82
[2025-09-13 23:56] VITALS: BP 114/83
[2025-09-14] VITALS (7 sets, daily range): BP systolic 95–129; BP diastolic 55–87
[2025-09-14 01:04] LABS: Hematocrit 22.2 % (37.0-53.0); Hemoglobin 6.5 g/dL (13.5-17.5)
[2025-09-14] MEDS ORDERED: Pantoprazole Sodium 40 MG Injection IV SCH (06:00)
[2025-09-14 06:06] LABS: BASOPHILS ABSOLUTE AUTO 0.03 K/mm3 (0.00-0.23); BASOPHILS PERCENT AUTO 1 % (0-2); EOSINOPHILS ABSOLUTE AUTO 0.17 K/mm3 (0.00-0.68); EOSINOPHILS PERCENT AUTO 4 % (0-6); Hematocrit 25.3 % (37.0-53.0); Hemoglobin 7.6 g/dL (13.5-17.5); IMMATURE GRAN ABSOLUTE AUTO 0.01 K/mm3 (0.00-0.10); IMMATURE GRAN PERCENT AUTO 0 % (0-1); LYMPHOCYTES ABSOLUTE AUTO 0.82 K/mm3 (0.84-5.20); LYMPHOCYTES PERCENT AUTO 17 % (21-46); MONOCYTES ABSOLUTE AUTO 0.52 K/mm3 (0.16-1.47); MONOCYTES PERCENT AUTO 11 % (4-13); Mean Corpuscular HGB Conc 30.0 g/dL (31.5-36.5); Mean Corpuscular Volume 88 fL (80-100); NEUTROPHILS ABSOLUTE AUTO 3.26 K/mm3 (1.96-9.15); NEUTROPHILS PERCENT AUTO 68 % (41-73); NRBC ABSOLUTE 0.00 K/mm3 (0.00-0.02); NRBC Auto 0.0 /100 WBC (0.0-0.2); Platelet Count 68 K/mm3 (150-400); RDW Coefficient Variation 17.1 % (11.7-14.2); RDW Standard Deviation 54.8 fL (35.1-46.3)
[2025-09-14 06:12] LABS: Prothrombin Time Results 12.5 Sec (9.7-11.5)
[2025-09-14 06:20] LABS: Alanine Aminotransfer (ALT/SGP 27.0 U/L (12-78); Albumin, Blood 2.8 g/dL (3.4-5.0); Albumin/Globulin Ratio 0.9 (0.8-1.8); Anion Gap 8.0 mmol/L (3-11); Aspartate Aminotrans (AST/SGOT 31.0 U/L (12-37); Bilirubin, Total 1.4 mg/dL (0.1-1.0); Blood Urea Nitrogen 26.0 mg/dL (8-24); CO2, Blood 25.0 mmol/L (21-32); Calcium, Blood 8.1 mg/dL (8.5-10.1); Chloride, Blood 115.0 mmol/L (98-108); Creatinine, Blood 1.42 mg/dL (0.60-1.20); Globulin, Blood 3.2 g/dL (2.2-4.0); Glucose, Blood 124.0 mg/dL (70-99); Potassium, Blood 4.3 mmol/L (3.5-5.5); Sodium, Blood 144.0 mmol/L (136-145); Total Protein, Blood 6.0 g/dL (6.4-8.2)
--- NOTE | 2025-09-14 06:49 | NUR ---
NOC SHIFT SUMMARY [facility] ARRIVED TO PCU AND TRANSFERED 1-2 PA TO BED. WOUNDS NOTED TO R AND L GREAT TOE, PHOTOS IN CHART. VSS, BORDERLINE HYPOTENSIVE. NOTIFIED ON-CALL RESIDENT OF PT WITH POLST FORM AND CONFIRMED DNR STATUS WITH MOM DAVI AT BEDSIDE AND PT. CODE STATUS CHANGED PER MD ORDER. SR/PVCS ON TELEMETRY. DENIES PAIN OR DISCOMFORT. PLEASANT AND COOPERATIVE. FORGETFUL AND NEEDS FREQUENT REDIRECTION IN ACTIVITIES WHICH FAMILY ALSO REPORTS BASELINE. NO BM, ADEQUATE UOP. ABD SOFT, ROUNDED, NONTENDER. WILL PASS ON TO DAY RN
--- NOTE | 2025-09-14 07:28 | NUR ---
Pt is alert, conversant at time of bedside shift report. He states he would like to have some oxycodone for pain. Now he is saying that he has lost his wedding ring. PCT looked all around the room, and in pt belongings but did not find it. Not in the locked medication drawer. Pt asked repeatedly to get up and walk around outside so that he could look for it. He is unable to recall the last time he saw it, does not remember it being removed, and cannot recall anything happening to it in the past 24 hours. He was given his own cell phone and encouraged to call his to see about it.
[2025-09-14 10:22] LABS: Hematocrit 28.5 % (37.0-53.0); Hemoglobin 8.3 g/dL (13.5-17.5)
--- NOTE | 2025-09-14 10:55 | NUR ---
Pt had normal looking brown stool this morning. Eating and drinking well. Requesting to take a walk around the unit. Noted last Hgb up from 7.6 to 8.3 at this time.
--- NOTE | 2025-09-14 11:15 | NUR ---
walked in hallway with walker, Nurse stand by assist. Used the geriwalker without difficulty, and kept up a good pace. Madi Hillman accompanied us as well.
[2025-09-14 13:15] LABS: Hematocrit 26.9 % (37.0-53.0); Hemoglobin 8.0 g/dL (13.5-17.5)
--- NOTE | 2025-09-14 13:43 | NUR ---
Pt has been alert, oriented x 2 and pleasantly conversant and directable. He follows directions, but is childlike and needs reminders frequently. His mom has been with him most of the day now, helping him and playing dice games with him.
--- NOTE | 2025-09-14 15:23 | NUR ---
Telephone report given to [facility] nurse on medical floor at this time. Pt will be readied for transfer to [facility] shortly.
[2025-09-14 18:09] LABS: Hematocrit 26.5 % (37.0-53.0); Hemoglobin 7.9 g/dL (13.5-17.5)
--- NOTE | 2025-09-14 20:19 | NUR ---
SHIFT SUMMARY: PATIENT TRANSFERED TO ROOM 353 LATET THIS SHIFT FROM PCU 20. PATIENT ORIENTED TO ROOM AND CALL SYSTEM. MEDICATED FOR PAIN X1 SENSE COMING TO FLOOR. ABD REMAINS DISTENDED WITH MOTHER DAVI VERBALIZING "LOOKING BIGGER AND MORE DISTENDED" SENSE 09/13/25. PATIENT HAS NO COMPLAINTS OF ABD PAIN AT THIS TIME. 1 WATERY BM WAS NOTED BY THIS NURSE, SMALL AND BROWN IN COLOR. PLAN TO CONTINUE TO MONITOR H+H LEVELS AT THIS TIME, POSSIBLE COBRA TRANSFER IF PATIENT DOES NOT STABALIZE.
[2025-09-14 21:22] LABS: Hematocrit 24.0 % (37.0-53.0); Hemoglobin 7.2 g/dL (13.5-17.5)
[2025-09-15 00:31] VITALS: BP 122/77
[2025-09-15 01:16] LABS: BASOPHILS ABSOLUTE AUTO 0.04 K/mm3 (0.00-0.23); BASOPHILS PERCENT AUTO 1 % (0-2); EOSINOPHILS ABSOLUTE AUTO 0.21 K/mm3 (0.00-0.68); EOSINOPHILS PERCENT AUTO 5 % (0-6); Hematocrit 25.2 % (37.0-53.0); Hemoglobin 7.4 g/dL (13.5-17.5); IMMATURE GRAN ABSOLUTE AUTO 0.01 K/mm3 (0.00-0.10); IMMATURE GRAN PERCENT AUTO 0 % (0-1); LYMPHOCYTES ABSOLUTE AUTO 1.00 K/mm3 (0.84-5.20); LYMPHOCYTES PERCENT AUTO 25 % (21-46); MONOCYTES ABSOLUTE AUTO 0.50 K/mm3 (0.16-1.47); MONOCYTES PERCENT AUTO 12 % (4-13); Mean Corpuscular HGB Conc 29.4 g/dL (31.5-36.5); Mean Corpuscular Volume 88 fL (80-100); NEUTROPHILS ABSOLUTE AUTO 2.28 K/mm3 (1.96-9.15); NEUTROPHILS PERCENT AUTO 56 % (41-73); NRBC ABSOLUTE 0.00 K/mm3 (0.00-0.02); NRBC Auto 0.0 /100 WBC (0.0-0.2); Platelet Count 60 K/mm3 (150-400); RDW Coefficient Variation 17.7 % (11.7-14.2); RDW Standard Deviation 56.2 fL (35.1-46.3)
[2025-09-15 01:31] LABS: Anion Gap 7.0 mmol/L (3-11); Blood Urea Nitrogen 21.0 mg/dL (8-24); CO2, Blood 27.0 mmol/L (21-32); Calcium, Blood 8.0 mg/dL (8.5-10.1); Chloride, Blood 113.0 mmol/L (98-108); Creatinine, Blood 1.27 mg/dL (0.60-1.20); Glucose, Blood 158.0 mg/dL (70-99); Potassium, Blood 3.8 mmol/L (3.5-5.5); Sodium, Blood 143.0 mmol/L (136-145)
[2025-09-15 04:46] VITALS: BP 111/55
[2025-09-15 06:00] VITALS: BP 105/58
[2025-09-15 06:02] VITALS: BP 128/73
[2025-09-15 07:35] VITALS: BP 115/67
--- NOTE | 2025-09-15 08:12 | NUR ---
SHIFT SUMMARY PATIENT HAD A DROP IN HNH, SYMPTOMS OF BLURRY VISION, DIZZINESS, NAUSEA NIGHT HOSPITALIST MADE AWARE, THIS RN HAD ASKED FOR A CT OR ULTRASOUND TO VISUALISE WHAT WAS HAPPENING IN THE ABDOMEN. HOSPITALIST STATED THEY WOULD ORDER SOMETHING AFTER LOOKING AT THE CHART. PATIENT CAP REFILL INCREASED TO ABOUT 6 SECONDS, STOMACH MORE DISTENDED, PATIENT LOOKED MORE PALE, VITAL SIGNS REMAIN WNL HAD SEVERAL RNS AND CHARGES ASSESS PATIENT DUE TO THE PATIENT TURNING A LITTLE MORE PALE. PATIENT THEN HAD AN IMPROVEMENT IN SYMPTOMS AND HNH. NO DISTRESS NOTED, PATIENT ABLE TO MAKE NEEDS KNOWN AT TIMES, NEEDS CONSTANT REDIRECTION/REMINDERS, PATIENT ASLEEP BREATHS EVEN AND UNLABORED.
--- NOTE | 2025-09-15 14:54 | NUR ---
PT GIVEN DISCHARGE PACKET PREPARED BY COVERING RN. HAD MANY QUESTIONS. ALL QUESTIONS WERE ANSWERED. PT TOLD HE NEEDS TO CALL HIS PCP AND MAKE A FOLLOW UP APT FOR WITHIN 7 DAYS. THIS WAS NOT PRINTED ON THE DISCHARGE INSTRUCTIONS. PT AND VERBALIZED UNDERSTANDING. IV REMOVED. CATH INTACT. PT DID REFUSE HIS CBG AND INSULIN AT LUNCH TIME BECAUSE HE WAS DEMANDING TO GO HOME AND REFUSED ANY CARE OR TREATMENT OTHER THAN HIS DISCHARGE INSTRUCTIONS. PT WILL BE ASSISTED OUT BY WHEEL CHAIR WHEN HIS SON ARRIVES TO TAKE HIM AND HIS HOME.
== END 2025-09-15 16:35 | disposition home or self-care (01) | DRG 379 ==
LOC: ER 14:10 → PCU 17:58 → ERHOLD 17:58 → PCU 20:19 → MEDS 09-14 15:31 → ENPENDDIS 09-15 13:05 → MEDS 09-15 16:35
PROVIDERS: Internal Medicine; Nurse Practitioner Acute Care; Physician Assistant; Student in an Organized Health Care Education/Training Program; ADMIT Internal Medicine
PROC: 30233N1 Transfusion of Nonautologous Red Blood Cells into Peripheral Vein, Percutaneous Approach (ICD-10-PCS; principal; 2025-09-13)
DX: K92.2 Gastrointestinal hemorrhage, unspecified (principal); E11.9 Type 2 diabetes mellitus without complications; Z79.4 Long term (current) use of insulin; N40.0 Benign prostatic hyperplasia without lower urinary tract symptoms; K70.30 Alcoholic cirrhosis of liver without ascites; D69.59 Other secondary thrombocytopenia; K76.82 Hepatic encephalopathy; K70.31 Alcoholic cirrhosis of liver with ascites; G40.909 Epilepsy, unspecified, not intractable, without status epilepticus
CPT/HCPCS: 36415; 36430; 80048; 80053; 82140; 82272; 82947; 83690; 85014; 85018; 85025; 85610; 85730; 86850; 86900; 86901; 86923; 99285-25; A9270; J1815; J2470; J7030; P9016